=== PATIENT | female | born 1960 | race Caucasian/White ===

== ENCOUNTER 2023-10-29 10:33 | Emergency (ER) | payer BC, SELFPAY ==
[2023-10-29 10:52] VITALS: BP 177/89
--- NOTE | 2023-10-29 11:50 | ED.GENMED ---
History of Present Illness
General
Chief Complaint: Back Pain
Source: patient
Exam Limitations: none
Time Seen by Provider: 10/29/23 11:18
Nursing documentation reviewed up to this point in time: agreed with
Travel History
Have you had any contact with someone who has COVID-19?: No
Do you have any symptoms of coronavirus? Fever > 100 degrees, chills, cough, shortness of breath, sore throat, loss of taste or smell, muscle aches, or headache?: No
History of Present Illness
History of Present Illness:
Patient is a 62-year-old female who has past medical history of meningioma presents to the ER complaining of pain to left lower back that radiates to her left leg and groin.
She has had chronic issues with her back in the past. She is on Relafen without relief. She denies any numbness tingling weakness. Denies any swelling.
She reports when she stands up she starts with pain in her left buttocks first then gradually radiates and shoots down her left leg.
She denies any trauma. Denies any swelling denies any fever or chills. She has taken ibuprofen without relief.
Review of Systems
Review of Systems
Allergies reviewed?: Yes
All Other Systems: ROS reviewed and negative except as documented in HPI and ROS
Constitutional: Reports no symptoms
Musculoskeletal: Reports other (pain radiating down left leg/hip/buttock region )
Skin: Reports no symptoms
Hematologic/Lymphatic: Reports no symptoms
Psychiatric: Reports no symptoms
Phy Exam
General Physical Exam
General Presentation: no apparent distress
General age: appears stated age
General Skin: warm and dry
General Habitus: normal
General Mental: alert
General Hydration: appears well hydrated
Neurological Exam
Neurological Exam: alert, oriented x3 and other (Normal sensation LEft lower extremity normal distal plantar / flexion )
Musculoskeletal Exam
Musculoskeletal Exam: full ROM
Skin Exam
Skin Exam: normal color and warm/dry
Psychiatric Exam
Psychiatric Exam: normal mood/affect
Course
Orders/Labs/Results
Orders:
Orders
10/29/23 10:56
Lumbar Spine, 2 or 3 View [CR Lumbar Spine 2 Or 3 Views] Urgent
Comment:
Reason For Exam: pain
10/29/23 11:49
Dexamethasone Sod Phosphate [Decadron] 10 mg IM NOW STA
Hip, Left 2-3 Views [CR Hip - LT w/wo Pel 2-3 Vw*] Urgent
Comment:
Reason For Exam: pain left hip /groin/buttock region
Include a pelvis x-ray?: Yes
Vital Signs
Initial and Last Documented VS:
Initial Vital Signs
Temp Pulse Resp BP Pulse Ox
98.9 F 86 17 177/89 99
10/29/23 10:52 10/29/23 10:52 10/29/23 10:52 10/29/23 10:52 10/29/23 10:52
Last Documented Vital Signs
Temp Pulse Resp BP Pulse Ox
98.9 F 86 17 177/89 99
10/29/23 10:52 10/29/23 10:52 10/29/23 10:52 10/29/23 10:52 10/29/23 10:52
MDM/Problems Addressed
Differential Diagnosis Includes:
Not limited to sciatica less likely muscle pain
MDM/Problems Addressed:
Symptoms are consistent with sciatica. Patient looks well no acute distress x-rays negative for acute findings. Patient received steroids here will DC with steroids. Patient will follow-up with [facility] orthopedics.
Chronic conditions affecting care:
History of meningioma had radiation but not surgically removed
*Critical Care Note
Total Time (30-74mins, 75-104mins- exclusive of procedures): Not Applicable
ED Attending Note
-
Portions of this chart may have been created with voice recognition software.� Occasional wrong word or��sound alike� substitutions may have occurred due to the inherent limitations of voice recognition software.
Discharge Plan
Departure
Patient Disposition: Home (Routine Discharge)
Date of Disposition: 10/29/23
Time of Disposition: 14:01
Patient with high blood pressure during this ER visit?: Yes
Condition: Fair
Covid-19: Not Applicable
Discharge Problem:
Sciatica
Instructions: Sciatica (DC), BLOOD PRESSURE
Prescriptions:
New
prednisone 10 mg Tablet
See Rx Instructions .ROUTE .COMPLEX Qty: 30 0RF
Rx Instructions:
Take By Mouth:
40 mg daily x3 days, 30 mg daily x3 days,
20 mg daily x3 days, 10 mg daily x3 days.
Referrals:
Stephanie Mars MD [Family Provider] -
Rey Escalante MD [Active] -
Activity Restrictions/Additional Instructions:
As discussed symptoms are consistent with sciatica. A prescription for steroids was sent to your pharmacy take as directed.
You May also take Tylenol. Follow-up closely with [facility] orthopedic physicians. Return if any worsening of symptoms
Interventions
Interventions:
*Risk Screen - Suicide Last Done: 10/29/23 10:52
*General Assessment Last Done: 10/29/23 10:52
*Neglect/Abuse Screening Last Done: 10/29/23 10:52
*ED COVID-19 Vaccine History Last Done: 10/29/23 10:52
Discharge Date and Time
Print Language: GIBRALTARIAN
[2023-10-29] MEDS: DECADRON 10 MG IM (12:02)
== END 2023-10-29 14:09 | disposition home or self-care (01) ==
LOC: EMR 10:33
PROVIDERS: EMERGENCY PHYSICIAN Student in an Organized Health Care Education/Training Program; FAMILY PHYSICIAN Internal Medicine
DX: M54.40 Lumbago with sciatica, unspecified side (principal); I10 Essential (primary) hypertension
CPT/HCPCS: 99284; 96372; 72100; 73502

== ENCOUNTER 2024-04-11 10:09 | Emergency (ER) | payer BC, SELFPAY ==
[2024-04-11 10:12] VITALS: BP 201/118
--- NOTE | 2024-04-11 11:26 | ED.GENMED ---
History of Present Illness
<Yadi Pace MD, Resident - Last Filed: 04/11/24 15:02>
General
Chief Complaint: Rectal Bleeding
Source: patient
Exam Limitations: none
Time Seen by Provider: 04/11/24 10:43
Nursing documentation reviewed up to this point in time: agreed with
History of Present Illness
History of Present Illness:
63-year-old female with history of hypertension, meningioma, who presents to the ED with complaints of intermittent rectal bleeding x 4 weeks. She noticed burning/pain with bowel movements 4 weeks ago, and subsequent bright red blood per rectum the
next day. Rectal burning/pain resolved but intermittent bleeding about 3 times a week continued, with increased frequency. She has had BRBPR every day in the past week.
Her bowel movements are usually loose as baseline, and she reports occasional left lower quadrant pain with bowel movements which resolve after BM is complete. She is not on any blood thinners. Daily drinker, <1pk daily smoker. No prior history of
GI bleed. Most recent colonoscopy was in [address] Sanchez where she had polyps removed: Internal hemorrhoids were found during retroflexion, polyps were resected and 1 year repeat colonoscopy was recommended, Pt has not had follow up.
Denies rectal burning/pressure, history of fissures/tears, or any history of inserting objects in rectum. No headaches, lightheadedness, constipation, nausea/vomiting, abdominal pain, or fevers/chills/sweats.
Phy Exam
<Yadi Pace MD, Resident - Last Filed: 04/11/24 15:02>
General Physical Exam
General Presentation: well appearing and no apparent distress
General Skin: warm and dry
General Habitus: normal
General Mental: alert
Cardiovascular Exam
Cardiovascular Exam: tachycardia and other (regular rhythm)
Pulmonary Exam
Pulmonary Exam: lungs clear, no respiratory distress, no rales, no crackles, no rhonchi and no wheezing
Gastrointestinal Exam
Gastrointestinal Exam: normal bowel sounds, non tender, soft, no organomegaly, non distended and other (no peritoneal signs)
Rectal Exam: normal external exam, normal sphincter tone, no stool and rectal mass (about 1 inch round mass)
Guaiac Status: grossly bloody - positive and positive
Course
<Yadi Pace MD, Resident - Last Filed: 04/11/24 15:02>
Orders/Labs/Results
Orders:
Orders
04/11/24 11:53
Complete Blood Count/No Diff Urgent
Comprehensive Metabolic Panel Urgent
PTT Urgent
Prothrombin Time Urgent
Abnormal Lab Results
04/11/24
11:53
MCH 31.2 H pg
(27.0-31.0)
Chloride 95 L mmol/L
(98-107)
04/11/24 11:53
04/11/24 11:53
Vital Signs
Initial and Last Documented VS:
Initial Vital Signs
Temp Pulse Resp BP Pulse Ox
98.4 F 111 20 201/118 99
04/11/24 10:12 04/11/24 10:12 04/11/24 10:12 04/11/24 10:12 04/11/24 10:12
Last Documented Vital Signs
Temp Pulse Resp BP Pulse Ox
98.4 F 111 20 164/79 100
04/11/24 10:12 04/11/24 10:12 04/11/24 10:12 04/11/24 11:57 04/11/24 13:00
<Nicole Irwin DO - Last Filed: 04/11/24 12:05>
Orders/Labs/Results
Orders:
Orders
04/11/24 11:53
Complete Blood Count/No Diff Urgent
Comprehensive Metabolic Panel Urgent
PTT Urgent
Prothrombin Time Urgent
Abnormal Lab Results
09/16/24
11:53
MCH 31.2 H pg
(27.0-31.0)
Chloride 95 L mmol/L
(98-107)
04/11/24 11:53
04/11/24 11:53
Vital Signs
Initial and Last Documented VS:
Initial Vital Signs
Temp Pulse Resp BP Pulse Ox
98.4 F 111 20 201/118 99
04/11/24 10:12 04/11/24 10:12 04/11/24 10:12 04/11/24 10:12 04/11/24 10:12
Last Documented Vital Signs
Temp Pulse Resp BP Pulse Ox
98.4 F 111 20 164/79 100
04/11/24 10:12 04/11/24 10:12 04/11/24 10:12 04/11/24 11:57 04/11/24 13:00
<Yadi Pace MD, Resident - Last Filed: 04/11/24 15:02>
MDM/Problems Addressed
Differential Diagnosis Includes:
hemorrhoids, polyps, diverticulosis, colitis, anal fissure, colorectal carcinoma
MDM/Problems Addressed:
Well-appearing patient. Scant BRPPR per digital rectal exam, nonmobile 1inch mass noted in rectum. CBC, CMP and coagulation studies unremarkable. Hypertensive urgency in the ED today. However, patient declined antihypertensive and prefers to stick
to scheduled Lisinopril in the evening at home.
Update: Pt remains hemodynamically stable. given stability and stable hemoglobin, no indication for transfusion or urgent GI intervention. Stable for discharge home to follow up with gastroenterology. Referral provided for gastroenterology,
previously made upcoming visit is in July. Can also follow up with PCP. Reasons to return to the ED was explained to the patient.
Chronic conditions affecting care: HTN
<Yadi Pace MD, Resident - Last Filed: 04/11/24 15:02>
*Critical Care Note
Total Time (30-74mins, 75-104mins- exclusive of procedures): Not Applicable
ED Attending Note
<Yadi Pace MD, Resident - Last Filed: 04/11/24 15:02>
-
Portions of this chart may have been created with voice recognition software.� Occasional wrong word or��sound alike� substitutions may have occurred due to the inherent limitations of voice recognition software.
<Nicole Irwin DO - Last Filed: 04/11/24 12:05>
ED Attending Note
Patient seen and examined by attending physician: Yes
I performed the substantive portion of visit, reviewed & personally made and approve the management plan that is documented in note by myself or ARIK.: Yes
I performed a history and physical exam of patient and discussed management with resident, I reviewed resident's note and agree with documented findings and plan of care.: Yes
ED Attending Note:
63-year-old female with history of hypertension and meningioma presenting to the emergency department for concern of bright red blood per rectum. Patient reports the past 4 weeks she has been having blood per rectum with loose bowel movements.
Reports colonoscopy in 2019, reportedly normal. Initially was having some burning after defecation, which has since resolved. Denies any associated abdominal pain. Denies any weakness or lightheadedness. She is not on any blood thinners. She
followed up with her primary care doctor who told her to come to the ER. She has an appointment with GI, however not until July. Does admit to daily alcohol usage. Vital signs arrival significant for hypertension and tachycardia. Patient
notes that she is chronically hypertensive, on lisinopril 40 mg daily.
On exam patient is well-appearing, no acute distress or discomfort. Benign abdominal exam, no tenderness to the abdomen. Unremarkable cardiac and pulmonary exam. On rectal exam, evidence of small external hemorrhoid. No anushka bleeding.
Hemoccult positive, however no significant stool. Patient notes since she is having a bowel movement, stool is brown with blood around it. Suspect possible hemorrhoidal component. Underlying malignancy is also consideration given duration of
symptoms. Low suspicion for significant GI hemorrhage given duration of symptoms, hemodynamic stability. Plan for screening laboratory analysis. No current indication for emergent CT abdominal imaging. Will likely need outpatient GI follow-up
for scheduled colonoscopy. 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 She is not interested in any additional medications. Explained that risks of the heart attack and stroke with untreated hypertension and patient verbalized understanding
Discharge Plan
Departure
Patient Disposition: Home (Routine Discharge)
Date of Disposition: 04/11/24
Time of Disposition: 13:29
Patient with high blood pressure during this ER visit?: Yes
Condition: Good
Discharge Problem:
Rectal bleeding
Instructions: Bloody Stools, Adult (DC), BLOOD PRESSURE
Prescriptions:
No Action
levetiracetam [Keppra] 750 mg Tablet
1,500 mg PO BID
lisinopril 40 mg Tablet
40 mg PO QPM
Referrals:
Sanjana Longoria DO [Family Provider] -
Brenda Sanchez MD [Active] -
Interventions
Interventions:
*Risk Screen - Suicide Last Done: 04/11/24 10:13
*General Assessment Last Done: 04/11/24 13:00
*Neglect/Abuse Screening Last Done: 04/11/24 10:13
*Nursing Disposition Last Done: 04/11/24 14:08
[id number]-Iagptkrhxe Assessment Last Done: 04/11/24 13:00
ED- Cardiac Assessment Last Done: 04/11/24 13:00
ED- Pulmonary Assessment Last Done: 04/11/24 13:00
Discharge Date and Time
Discharge Date/Time: 04/11/24 14:09
Print Language: FAROESE
[2024-04-11 11:57] VITALS: BP 164/79
[2024-04-11 12:00] LABS: Hematocrit 37.6 % (37.0-47.0); Hemoglobin 13.7 g/dL (12.0-16.0); Mean Corp Hgb Conc. 36.4 g/dL (33.0-37.0); Mean Corpuscular Hgb 31.2 pg (27.0-31.0); Mean Corpuscular Volume 85.6 fL (81.0-99.0); Mean Platelet Volume 9.3 fL (7.4-10.4); Platelet Count 318 10^3/uL (130-400); Red Blood Cell Count 4.39 10^6/uL (4.20-5.40); Red Cell Dist. Width 12.1 % (11.5-14.5); White Blood Cell Count 6.8 10^3/uL (4.8-10.8)
[2024-04-11 12:11] LABS: INR 1.03; PT 13.3 Sec (11.4-14.6)
[2024-04-11 12:16] LABS: ALT (SGPT) 18 U/L (0-35); AST (SGOT) 29 U/L (14-36); Alkaline Phosphatase 86 U/L (38-126); Blood Urea Nitrogen 11 mg/dl (7-17); Calcium 9.8 mg/dl (8.4-10.2); Carbon Dioxide 26 mmol/L (22-30); Chloride 95 mmol/L (98-107); Glucose 92 mg/dl (70-99); Potassium 4.6 mmol/L (3.5-5.1); Sodium 135 mmol/L (135-145); Total Bilirubin 0.9 mg/dl (0.2-1.3); Total Protein 7.3 g/dl (6.3-8.2); eGFR > 60.00
[2024-04-11 12:34] LABS: APTT 27.2 Sec (23.4-35.0)
== END 2024-04-11 14:09 | disposition home or self-care (01) ==
LOC: EMR 10:09
PROVIDERS: Student in an Organized Health Care Education/Training Program; EMERGENCY PHYSICIAN Student in an Organized Health Care Education/Training Program; FAMILY PHYSICIAN Internal Medicine
DX: K62.5 Hemorrhage of anus and rectum (principal); I10 Essential (primary) hypertension; F17.200 Nicotine dependence, unspecified, uncomplicated
CPT/HCPCS: 99283; 80053; 85027; 85610; 85730